=== PATIENT | female | born 1990 | race African-American/Black ===

== ENCOUNTER 2016-12-22 12:46 | Emergency (ER) | payer SELFPAY ==
[~2016-12-22] VITALS: Ht 170.2 cm; Wt 105.0 kg
[2016-12-22 12:49] VITALS: BP 155/92; PULSE 142; RESP 24; TEMP 98.5; O2SAT 97
--- NOTE | 2016-12-22 13:17 | PD ---
HPI Chief Complaint: Injury Time Seen by Provider: 12:56 Travel History International Travel<30 days: No Contact w/Intl Traveler<30days: No Traveled to known affect area: No History of Present Illness HPI The patient was seen and examined in the presence of the nurse. Patient reports that she is dislocated her shoulder 11 times in the past. She reports reaching to the back seat of her car and feeling a pop and having pain in the right shoulder. No direct trauma to it. Says she's never seen an orthopedist. Symptoms severity is moderate. Duration 1 hour. No alleviating factors. PFSH Past Medical History ?: Not LMP: NOV 2016 Social History Alcohol Use: No Tobacco Use: No Substance Use: No Allergies-Medications (Allergen,Severity, Reaction): Coded Allergies: Aspirin (Verified Allergy, Intermediate, Hives, 12/22/16) Reported Meds & Prescriptions Reported Meds & Active Scripts Active No Active Prescriptions or Reported Medications Review of Systems General / Constitutional: No: Fever Eyes: No: Visual changes HENT: No: Headaches Cardiovascular: No: Chest Pain or Discomfort Respiratory: No: Shortness of Breath Gastrointestinal: No: Abdominal Pain Genitourinary: No: Dysuria Musculoskeletal: Positive: Arthralgias, Limited ROM, Pain Skin: No Rash Neurologic: No: Weakness Psychiatric: No: Depression Endocrine: No: Polydipsia Hematologic/Lymphatic: No: Easy Bruising Physical Exam Narrative GENERAL: Well-nourished, well-developed patient with right shoulder pain. SKIN: Warm and dry. HEAD: Atraumatic. Normocephalic. EYES: Pupils equal and round. No scleral icterus. No injection or drainage. ENT: No nasal bleeding or discharge. Mucous membranes pink and moist. NECK: Trachea midline. No JVD. CARDIOVASCULAR: Regular rate and rhythm. No murmur appreciated. RESPIRATORY: No accessory muscle use. Clear to auscultation. Breath sounds equal bilaterally. GASTROINTESTINAL: Abdomen soft, non-tender, nondistended. Hepatic and splenic margins not palpable. MUSCULOSKELETAL: hAs asymmetry with a dimple were the right humeral head should be. No clubbing. No cyanosis. No edema. Decreased range of motion right arm. NEUROLOGICAL: Awake and alert. No obvious cranial nerve deficits. Motor grossly within normal limits. Normal speech. PSYCHIATRIC: Appropriate mood and affect; insight and judgment normal. Data Data Last Documented VS Vital Signs Date Time Temp Pulse Resp B/P Pulse Ox O2 Delivery O2 Flow Rate FiO2 12/22/16 12:49 98.5 142 24 155/92 97 Room Air Orders Iv Access Insert/Monitor (12/22/16 13:03) Shoulder, Limited(2vws) (12/22/16 ) Propofol 200 Mg/20 Ml Inj (Diprivan 200 (12/22/16 13:30) Shoulder, Limited(2vws) (12/22/16 ) Oxycodone-Acetamin 5-325 Mg (Percocet (12/22/16 14:15) Acetamin-Hydrocod 325-5 Mg ([place] 5-325 (12/22/16 14:15) Sling And Swathe (12/22/16 ) MDM Medical Decision Making Medical Screen Exam Complete: Yes Emergency Medical Condition: Yes Medical Record Reviewed: Yes Differential Diagnosis Shoulder dislocation, fracture, contusion Narrative Course I have reviewed the patient's electronic medical record. Patient has not been here before for shoulder dislocation. IV placed I reviewed her right shoulder x-rays which show an anterior dislocation without fracture Procedure note: I discussed the risks and benefits of conscious sedation and reduction. She's been to this many times and she signs consent She is placed on oximetry and telemetry monitoring and given oxygen I gave her 70 mg IV Diprivan This achieved excellent sedation [employer] applied countertraction with a sheet wrapped around her torso while I applied distal traction to the right arm and reduce the shoulder dislocation I reviewed post reduction films which showed good placement of the shoulder He was given adequate time, a full 75 minutes of monitoring to let the sedation wore off and she is now alert and talkative and feels better I gave her a pain pill Recommend orthopedic follow-up She is in a sling and swath Diagnosis Primary Impression: Anterior dislocation of right shoulder Qualified Code: S43.014A - Anterior dislocation of right shoulder, initial encounter Additional Instructions: Follow-up with orthopedist Wear sling and swath Med/Other Pt SpecificInfo: Other Scripts No Active Prescriptions or Reported Meds Disposition: 01 DISCHARGE HOME Condition: Stable Shiva Mora MD Dec 22, 2016 13:17
[2016-12-22] MEDS ORDERED: PROPOFOL 200 MG/20 ML AMP IV ONE (13:30)
--- NOTE | 2016-12-22 13:32 | RADRPT ---
EXAM DATE/TIME: 12/22/2016 13:29 [facility] COMPARISON: No previous studies available for comparison. INDICATIONS : Right shoulder pain, no injury. MEDICAL HISTORY : None. SURGICAL HISTORY : None. ENCOUNTER: Initial ACUITY: 1 day PAIN SCORE: 10/10 LOCATION: Right shoulder FINDINGS: Right glenohumeral joint is anteriorly dislocated. No displaced fracture seen. Radiographic appearanc e of the soft tissues within normal limits. CONCLUSION: Anterior dislocation of the right glenohumeral joint. Ulysses Munson MD on December 22, 2016 at 13:30 Board Certified Radiologist. This report was verified electronically.
[2016-12-22 13:39] VITALS: O2SAT 100
[2016-12-22] MEDS ORDERED: oxyCODONE/ACETAMINOPHEN 5 MG/325 MG TAB PO ONE (14:15)
[2016-12-22] MEDS ORDERED: ACETAMINOPHEN/HYDROcodone 325 MG/5 MG TAB PO ONE (14:15)
--- NOTE | 2016-12-22 15:01 | RADRPT ---
EXAM DATE/TIME: 12/22/2016 14:47 [facility] COMPARISON: SHOULDER RIGHT LTD (2VWS), December 22, 2016, 13:29. INDICATIONS : Right Shoulder Post-Reduction. MEDICAL HISTORY : None. SURGICAL HISTORY : None. ENCOUNTER: Initial ACUITY: 1 day PAIN SCORE: 3/10 LOCATION: Right Shoulder. FINDINGS: The previously seen dislocation of the glenohumeral joint has been reduced. There is quite a meso A. shallow Hill-Sachs lesion of the humeral head. I don't see a displaced fracture. Glenoid grossly inta ct. CONCLUSION: Reduced dislocation. Hill-Sachs lesion of the humeral head. No displaced fracture seen. Ulysses Munson MD on December 22, 2016 at 14:59 Board Certified Radiologist. This report was verified electronically.
[2016-12-22 15:03] VITALS: BP 123/65; PULSE 59; RESP 18; O2SAT 100
== END 2016-12-22 15:23 | disposition home or self-care (01) ==
LOC: NEPC 12:46
DX: S43.014A Anterior dislocation of right humerus, initial encounter (principal); X50.1XXA Overexertion from prolonged static or awkward postures, initial encounter; Y93.9 Activity, unspecified; Y92.9 Unspecified place or not applicable
CPT/HCPCS: 23650; 29240; 73030; 99152; 99153

== ENCOUNTER 2017-02-02 21:47 | Emergency (ER) | payer OTHER ==
[~2017-02-02] VITALS: Ht 170.2 cm; Wt 102.0 kg
[2017-02-02 21:49] VITALS: BP 140/83; PULSE 74; RESP 16; TEMP 98.4; O2SAT 99
--- NOTE | 2017-02-02 22:43 | PD ---
Physical Exam Date Seen by Provider: Feb 02, 2017 Time Seen by Provider: 22:38 Narrative 27 YOBF C/O R EAR PAIN AND DECREASED HEARING. SICK FOR THE PAST 3 WEEKS.+ COUGH CONGESTION, NAUSEA. NO F/C, VOMITING. LMP 01/22/17 VSS. PT AWAITING BED PLACEMENT. Data Data Last Documented VS Vital Signs Date Time Temp Pulse Resp B/P Pulse Ox O2 Delivery O2 Flow Rate FiO2 02/02/17 21:49 98.4 74 16 140/83 99 Room Air [facility] Medical Record Reviewed: Yes Supervised Visit with CHARLES: Yes Scripts No Active Prescriptions or Reported Meds Reji Hernandez Feb 02, 2017 22:43
[2017-02-02] MEDS ORDERED: WARF4TAB52 PO (23:39)
[2017-02-02] MEDS ORDERED: AMOXICILLIN/CLAVULANATE K 875 MG TAB PO ONE (23:45)
[2017-02-02] MEDS ORDERED: AUGM875T PO (23:46)
--- NOTE | 2017-02-02 23:50 | PD ---
HPI Chief Complaint: ENT Complaint Time Seen by Provider: 23:40 Travel History International Travel<30 days: No Contact w/Intl Traveler<30days: No Traveled to known affect area: No History of Present Illness HPI This is a 27-year-old female who presents for evaluation. For the past few weeks she has been having upper respiratory symptoms including cough and congestion. Today she developed right ear pain and a clogged sensation in the right ear. The pain is a throbbing pain is constant with no alleviating factors. She also endorses a sore throat over the past week. No fevers or chills, rash or recent travel. No sick contacts. No other complaints. PFSH Past Medical History Asthma: Yes Immunizations Current: Yes Tetanus Vaccination: Unknown Influenza Vaccination: Yes ?: Not LMP: 01/22/17 Social History Alcohol Use: Yes (occ) Tobacco Use: No Substance Use: No Allergies-Medications (Allergen,Severity, Reaction): Coded Allergies: Aspirin (Verified Allergy, Intermediate, Hives, 02/02/17) Reported Meds & Prescriptions Reported Meds & Active Scripts Active Augmentin (Amoxicillin-Clavulanate) 875-125 mg Tab 875 Mg PO BID 10 Days not for use in CrCl <30 ml/min. Reported Warfarin 1 Mg Tab 1 Mg PO DAILY Review of Systems Except as stated in HPI: all other systems reviewed are Neg Physical Exam Narrative GENERAL: Well-developed well-nourished female in no acute distress SKIN: Warm and dry. HEAD: Atraumatic. Normocephalic. EYES: Pupils equal and round. No scleral icterus. No injection or drainage. ENT: No nasal bleeding or discharge. Mucous membranes pink and moist. There is oropharyngeal erythema and exudate formation. The right tympanic membrane is bulging and erythematous, no perforation. NECK: Trachea midline. No JVD. No lymphadenopathy. CARDIOVASCULAR: Regular rate and rhythm. No murmur appreciated. RESPIRATORY: No accessory muscle use. Clear to auscultation. Breath sounds equal bilaterally. Data Data Last Documented VS Vital Signs Date Time Temp Pulse Resp B/P Pulse Ox O2 Delivery O2 Flow Rate FiO2 02/02/17 21:49 98.4 74 16 140/83 99 Room Air Orders Amoxicil-Clavulanate (Augmentin) (02/02/17 23:45) [facility] Medical Decision Making Medical Screen Exam Complete: Yes Emergency Medical Condition: Yes Medical Record Reviewed: Yes Differential Diagnosis Otitis media, otitis externa, eustachian tube dysfunction, sinusitis, mastoiditis, cerumen impaction, bronchitis, pneumonia, pharyngitis Narrative Course 27-year-old female who has had upper respiratory symptoms for 3 weeks. She presents now with a sore throat for 1 week and right ear pain and clogged sensation for one day. Examination reveals obvious right otitis media as well as exudative pharyngitis. She is being discharged with Augmentin. Diagnosis Primary Impression: Right otitis media Qualified Code: H66.001 - Acute suppurative otitis media of right ear without spontaneous rupture of tympanic membrane, recurrence not specified Additional Impressions: Exudative pharyngitis Upper respiratory infection Qualified Code: J06.9 - Upper respiratory tract infection, unspecified type Additional Instructions: Take the antibiotic as prescribed. Stay well hydrated well-nourished, get plenty of rest. Take [id number] Tylenol or Motrin for discomfort, use [id number] nasal decongestants and cough suppressants. Return for any emergent medical conditions. Med/Other Pt SpecificInfo: Prescription(s) given Scripts Amoxicillin-Clavulanate (Augmentin)875-125 mg [id number] Mg PO BID 10 Days Ref 0 not for use in CrCl <30 ml/min. Prov:Abdifatah Gonzales MD 02/02/17 Disposition: 01 DISCHARGE HOME Condition: Stable Rey Molina Feb 02, 2017 23:50
== END 2017-02-03 00:14 | disposition home or self-care (01) ==
LOC: NEPK 21:47
DX: H66.001 Acute suppurative otitis media without spontaneous rupture of ear drum, right ear (principal); J06.9 Acute upper respiratory infection, unspecified; J45.909 Unspecified asthma, uncomplicated
CPT/HCPCS: 99283